=== PATIENT | female | born 1995 | race Caucasian/White ===

== ENCOUNTER 2017-01-14 09:39 | Emergency (ER) | payer OTHER ==
[~2017-01-14] VITALS: Ht 165.1 cm; Wt 54.5 kg
[~2017-01-14 09:39] MED LIST: BCP; NORCO 325 MG-51 TAB PO; ZOFRAN ODT4 MG PO
[2017-01-14 09:40] VITALS: TEMP 98.1
[2017-01-14 10:05] LABS: BASO % 0.4 % (0.0-2.0); EOS # 0.1 (0.0-0.7); EOS % 1.1 % (0-4.0); GRAN # 4.6 (1.4-6.5); GRAN % 63.9 % (42.2-75.2); HEMOGLOBIN 12.3 g/dl (12.5-16.0); LYMPH % 27.1 % (20.0-51.0); MEAN CELL VOLUME 98 fl (80.0-100.0); MEAN CORPUSCULAR HEMOGLOBIN 34 pg (27.0-31.0); MEAN CORPUSCULAR HGB CONC 35 g/dl (33.0-37.0); MEAN PLATELET VOLUME 10.7 fl (7.4-10.4); MONO # 0.5 (0.1-0.6); MONO % 7.4 % (1.7-9.3); PLATELET COUNT 235 K/mm3 (130-400); RED BLOOD COUNT 3.63 M/mm3 (4.10-5.30); REDCELL DISTRIBUTION WIDTH-CV 12.4 % (11.5-14.5); WHITE BLOOD COUNT 7.2 K/mm3 (4.8-10.8)
[2017-01-14 10:11] LABS: HEMATOCRIT 35.6 % (37.0-47.0)
[2017-01-14 10:21] LABS: ADJUSTED CALCIUM 8.3 mg/dL (8.4-10.2); ALANINE AMINOTRANSFERASE 36 U/L (9-52); ALBUMIN 4.5 gm/dL (3.5-5.0); ALKALINE PHOSPHATASE 47 U/L (50-136); ANION GAP 13 mmol/L (7-16); BILIRUBIN,TOTAL 0.6 mg/dL (0.0-1.0); BLOOD UREA NITROGEN 11 mg/dL (7-17); CALCIUM 8.7 mg/dL (8.4-10.2); CARBON DIOXIDE 20 mmol/L (22-30); CHLORIDE 106 mmol/L (98-107); CREATININE, serum 0.62 mg/dL (0.52-1.25); GLUCOSE 80 mg/dL (74-106); POTASSIUM 3.9 mmol/L (3.4-5.0); SODIUM 139 mmol/L (137-145); TOTAL PROTEIN 7.6 gm/dL (6.4-8.2)
[2017-01-14 10:25] LABS: ACETAMINOPHEN < 10 ug/mL (10-30); SALICYLATE < 1.0 mg/dL
[2017-01-14 11:15] LABS: AMPHETAMINE URINE NEGATIVE; BARBITURATES URINE NEGATIVE; BENZODIAZEPINES URINE NEGATIVE; BUPRENORPHINE URINE NEGATIVE; METHADONE URINE NEGATIVE; OPIATES URINE POSITIVE; OXYCODONE URINE NEGATIVE; PHENCYCLIDINE URINE NEGATIVE; PROPOXYPHENE URINE NEGATIVE; THC CANNABINOIDS URINE POSITIVE
[2017-01-14 12:19] VITALS: BP 116/75; PULSE 89
== END 2017-01-14 12:19 | disposition home or self-care (01) ==
LOC: COL.ER 09:39
PROVIDERS: Physician Assistant Medical
DX: T36.0X2A Poisoning by penicillins, intentional self-harm, initial encounter (principal); T40.2X2A Poisoning by other opioids, intentional self-harm, initial encounter; T51.0X2A Toxic effect of ethanol, intentional self-harm, initial encounter
CPT/HCPCS: J2060; J2405; J7030

== ENCOUNTER → 2018-04-13 | Outpatient (CLI) | payer OTHER | LOC: COL.RAD 13:52 | DX: S39.92XA Unspecified injury of lower back, initial encounter (principal); M89.9 Disorder of bone, unspecified ==